=== PATIENT | male | born 1945 | race Caucasian/White ===

== ENCOUNTER 2017-10-18 15:01 | Inpatient (IN) | payer OTHER ==
[2017-10-18 15:48] VITALS: BMI 31.6
--- NOTE | 2017-10-18 18:07 | PDOC ---
History of Present Illness - General Chief Complaint: Injury Stated Complaint: FALL Time Seen by Provider: 10/18/17 16:06 History Source: Patient Exam Limitations: No Limitations - History of Present Illness Initial Comments: 10/18/17 17:54 Patient is a 72M with history of COPD, anxiety, HLD, and HTN here today after a witnessed mechanical fall. Patient and patient's family reports that he tripped on an uneven walking surface and landing on his head. He denies loss of consciousness. Denies being on aspirin or blood thinners. He denies neck pain, chest pain, shortness of breath. He does endorse bilateral shoulder pain. Denies fevers, chills, nausea, vomiting. Past History - Past Medical History Allergies/Adverse Reactions: Allergies Allergy/AdvReac Type Severity Reaction Status Date / Time peanut Allergy Verified 10/18/17 15:42 Penicillins Allergy Verified 10/18/17 15:42 Sulfa (Sulfonamide Allergy Verified 10/18/17 15:42 Antibiotics) Home Medications: Ambulatory Orders Albuterol Sulfate Inhaler - [Ventolin Hfa Inhaler -] 1 - 2 inh PO Q4H PRN Amlodipine Besylate [Norvasc -] 10 mg PO DAILY 10/18/17 Budesonide/Formeterol Fumarate [SYMBICORT 80/4.5mcg -] 0 inh PO ASDIR 10/18/17 Cetirizine HCl [Zyrtec -] 10 mg PO DAILY 10/18/17 Icosapent Ethyl [Vascepa] 0 gm PO ASDIR 10/18/17 Mirtazapine [Remeron -] 0 mg PO ASDIR 10/18/17 Neomycn/Polymxn/Dexmth Op Susp [Maxitrol] 0 ml OU UTDICT 10/18/17 Rosuvastatin Calcium [Crestor] 0 mg PO ASDIR 10/18/17 Trazodone HCl 0 mg PO ASDIR 10/18/17 clonazePAM [Klonopin -] 0.5 mg PO DAILY PRN 10/18/17 COPD: Yes HTN: Yes Psychiatric Problems: Yes (anxiety) - Surgical History Appendectomy: Yes - Suicide/Smoking/Psychosocial Hx Smoking History: Former smoker Have you smoked in the past 12 months: No If you are a former smoker, when did you quit?: 2 years ago Information on smoking cessation initiated: No Hx Alcohol Use: No Drug/Substance Use Hx: No Review of Systems - Review of Systems Comments:: 10/18/17 18:07 GENERAL/CONSTITUTIONAL: No fever or chills. No weakness. HEAD, EYES, EARS, NOSE AND THROAT: No change in vision. No sore throat. CARDIOVASCULAR: No chest pain or shortness of breath RESPIRATORY: No cough, wheezing, or hemoptysis. GASTROINTESTINAL: No nausea, vomiting, diarrhea or constipation. GENITOURINARY: No dysuria, frequency, or change in urination. MUSCULOSKELETAL: Positive for shoulder pain. No neck or back pain. SKIN: No rash NEUROLOGIC: Positive for headache. Negative for vertigo, loss of consciousness, or change in strength/sensation. HEMATOLOGIC/LYMPHATIC: No anemia, easy bleeding, or history of blood clots. ALLERGIC/IMMUNOLOGIC: No hives or skin allergy. *Physical Exam - Vital Signs Last Vital Signs Temp Pulse Resp BP Pulse Ox 98.2 F 98 H 18 148/73 97 10/18/17 15:05 10/18/17 15:05 10/18/17 15:05 10/18/17 15:05 10/18/17 15:05 - Physical Exam Comments: 10/18/17 18:08 GENERAL: Awake, alert, and fully oriented, in no acute distress BACK: No midline tenderness, no signs of trauma, no step offs or deformities ARMS/SHOULDERS: Tenderness on lateral shoulders bilaterally, neurovascularly intact, small scrapes to hands bilaterally, limited ROM by pain, no obvious deformity PELVIS: Stable, nontender HEAD: Normocephalic, small abrasions along nose and forehead EYES: PERRLA, EOMI, sclera anicteric, conjunctiva clear ENT: Auricles normal inspection, hearing grossly normal, nares patent, oropharynx clear without exudates. Moist mucosa NECK: Normal ROM, supple, no lymphadenopathy, JVD, or masses, no midline tnedneress LUNGS: No distress, speaks full sentences, clear to auscultation bilaterally HEART: Regular rate and rhythm, normal S1 and S2, no murmurs, rubs or gallops, peripheral pulses normal and equal bilaterally. ABDOMEN: Soft, nontender, normoactive bowel sounds. No guarding, no rebound. No masses EXTREMITIES: Normal inspection, Normal range of motion, no edema. No clubbing or cyanosis. NEUROLOGICAL: Cranial nerves II through XII grossly intact. Normal speech, no focal sensorimotor deficits SKIN: Warm, Dry, normal turgor, no rashes or lesions noted. ED Treatment Course - RADIOLOGY Radiology Studies Ordered: Category Date Time Status FACIAL BONES CT W/O CONTRAST [CT] Stat CT Scan 10/18/17 16:[address] WITHOUT CONTRAST [CT] Stat CT Scan 10/18/17 16:34 Taken SHOULDER-LEFT [RAD] Stat Radiology 10/18/17 16:34 Taken SHOULDER-RIGHT [RAD] Stat Radiology 10/18/17 16:34 Taken - Medications Given in the ED: ED Medications Discontinued Medications Generic Name Dose Route Start Last Admin Trade Name Freq PRN Reason Stop Dose Admin Oxycodone/Acetaminophen 1 combo 10/18/17 15:46 10/18/17 15:55 Percocet 5/325 - PO 10/18/17 15:47 1 combo ONCE ONE Administration Medical Decision Making - Medical Decision Making 10/18/17 18:09 Patient is 72M with history of COPD, anxiety, HLD, and HTN here today with head and arm trauma after a fall. Vital signs normal and stable. NEXUS clears c- spine. Cannot rule out head due to bleed due to age. Limited ROM in shoulder and tender. X-rays show probable bilateral humeral head fracture. CT cervical spine added due to injury pattern. 10/18/17 19:05 Dr Hendricks contacted, limited dispo due to one view of each x-ray. Suggests CTs of both extremities to obtain better picture of acute process. Patient likely to be placed in slings bilaterally. Will admit due to inability of patient to take care of himself. Signed out to Dr Christie, pending CT of shoulders and cervical spine. Pre- admission labs ordered. *DC/Admit/Observation/Transfer Diagnosis at time of Disposition: Humerus fracture Qualifiers: Encounter type: initial encounter Humerus Location: proximal Fracture type: closed - Discharge Dispostion Condition at time of disposition: Stable - Referrals - Patient Instructions - Post Discharge Activity
--- NOTE | 2017-10-18 18:59 | PDOC ---
*Physical Exam - Vital Signs Last Vital Signs Temp Pulse Resp BP Pulse Ox 98.2 F 98 H 18 148/73 97 10/18/17 15:05 10/18/17 15:05 10/18/17 15:05 10/18/17 15:05 10/18/17 15:05 ED Treatment Course - LABORATORY CBC & Chemistry Diagram: 10/18/17 20:20 10/18/17 20:20 - Medications Given in the ED: ED Medications Discontinued Medications Generic Name Dose Route Start Last Admin Trade Name Freq PRN Reason Stop Dose Admin Oxycodone/Acetaminophen 1 combo 10/18/17 15:46 10/18/17 15:55 Percocet 5/325 - PO 10/18/17 15:47 1 combo ONCE ONE Administration Medical Decision Making - Medical Decision Making 72 yo man with BL proximal humeral fractures after mechanical fall. Ortho aware , recommended BL arm CTs and BL slings. Dr. Hendricks aware. Sign out given by Dr. Mathis. Will admit after imaging. 10/18/17 18:[address] arms noted for BL proximal comminuted fractures of the humeral heads with moderate displacement. Discussed case with Dr. Hendricks, plan for conservative management. Will admit to hospital for likely ALEKSANDRA placement. 10/18/17 21:52 Discussed case with admitting resident Dr. Santos for [facility]. Will admit to M/S under Dr. Berg. 10/18/17 22:55 *DC/Admit/Observation/Transfer Diagnosis at time of Disposition: Humerus fracture Qualifiers: Encounter type: initial encounter Humerus Location: proximal Fracture type: closed - Discharge Dispostion Condition at time of disposition: Stable - Referrals - Patient Instructions - Post Discharge Activity
[2017-10-18] MEDS ORDERED: morphine CARPU-JECT 2 MG/1 ML DISP.SYRIN IVPUSH ONE (20:56)
[2017-10-18] MEDS ORDERED: morphine CARPU-JECT 4 MG/1 ML DISP.SYRIN IVPUSH ONE (20:57)
[2017-10-18] MEDS ORDERED: morphine SULFATE 4 MG/ML VIAL ONE (21:02)
--- NOTE | 2017-10-18 21:55 | PDOC ---
Attending Attestation - HPI HPI: 10/18/17 21:55 The patient is a 72 year old male with past medical history of hypertension, hyperlipidemia, COPD, and anxiety who presents to the ED s/p mechanical fall today. The patient states he was walking down a wheelchair ramp when he tripped and fell, landing on his face and extended arms. In the ED he complains of nose pain as well as bilateral shoulder pain. He denies any LOC, or focal neurological deficits. He denies any palpitations, chest pain, headache or diaphoresis leading up to the fall. Denies any recent fevers or chills - Physicial Exam PE: 10/18/17 21:59 bilat shoulder pain GENERAL: Well developed, well nourished. Awake and alert. HEENT: Superficial abrasions over nasal bridge, PERRLA, EOMI. No conjunctival pallor. Sclera are non-icteric. Moist mucous membranes. Oropharynx is clear. NECK: Supple. Full ROM. No JVD. Carotid pulses 2+ and symmetric, without bruits. No thyromegaly. No lymphadenopathy. CARDIOVASCULAR: Regular rate and rhythm. No murmurs, rubs, or gallops. Distal pulses are 2+ and symmetric. PULMONARY: No evidence of respiratory distress. Lungs clear to auscultation bilaterally. No wheezing, rales or rhonchi. ABDOMINAL: Soft. Non-tender. Non-distended. No rebound or guarding. No organomegaly. Normoactive bowel sounds. MUSCULOSKELETAL Bilateral shoulder pain elicited on palpation. No CVA tenderness. EXTREMITIES: Pitting edema of bilateral lower extremities. No cyanosis. No clubbing. No calf tenderness. 2+ distal pulses, 2+ radial pulses SKIN: Warm and dry. Normal capillary refill. No rashes. No jaundice. NEUROLOGICAL: Alert, awake, appropriate. Cranial nerves 2-12 intact.Normal speech. PSYCHIATRIC: Cooperative. Good eye contact. Appropriate mood and affect. - Medical Decision Making 10/18/17 21:56 Documentation prepared by Raegan Gonzales, acting as medical record coder for Dolly Mullins MD. 10/18/17 22:27 Microblog sent to [facility]. <Raegan Gonzales - Last Filed: 10/18/17 22:59> - Resident Resident Name: Harpreet Mathis - ED Attending Attestation I have performed the following: I have examined & evaluated the patient, The case was reviewed & discussed with the resident, I agree w/resident's findings & plan, Exceptions are as noted - Medical Decision Making 10/19/17 01:53 Patient was seen by orthopedist, Dr. Hendricks who wrote a consultation <Dolly Mullins - Last Filed: 10/19/17 01:54>
--- NOTE | 2017-10-18 21:57 | CONSULT ---
Consult - text type - Consultation Consultation Note: Asked to eval this 72M, RHD, with bilateral shoulder fractures. He tripped and fell today. No LOC. Denies neck pain, blurry vision. PMH:COPD, anxiety, HLD, and HTN Meds: Reviewed in chart All: peanuts.PCN, sulfa FH: n/c SH: neg cig/etoh ROS: no recent fevers/chills/weight loss PE: awake, alert, orinted, breathing comfortably Superficial abrasions and swelling over nasal area b/l shoulder swollen and painful, no elbow/wrist tenderness radial pulses 2+ B/L ROM without pain, able to raise both legs out of bed without difficulty distal pulses 2+ No peripheral edema Nontender to palpation throughout pelvis and lower extremities, DTR symmetric Xrays: b/l impacted proximal humerus fractures, however only 1 view per shoulder done CT scans: b/l comminuted, impacted proximal humerus fractures, no dislocation Imp: B/L impacted comminuted proximal humerus fractures -sling b/l UE, NWB, may use elbows and wrists for daily activities -will order plain films in the morning AP, scapular Y xrays to check overall alignment. Both fractures likely nonoperative. -dispo planning
[2017-10-18 22:03] LABS: BLOOD UREA NITROGEN 13 mg/dL (7-18); CREATININE 1.3 mg/dL (0.7-1.3); GLUCOSE,RANDOM 131 mg/dL (74-106); SODIUM 139 mmol/L (136-145)
[2017-10-18 22:04] LABS: ALBUMIN 3.6 g/dl (3.4-5.0); ANION GAP 8 (8-16); BILIRUBIN,TOTAL 2.3 mg/dL (0.2-1.0); CALCIUM 8.5 mg/dL (8.5-10.1); CHLORIDE 108 mmol/L (98-107); CO2 23 mmol/L (21-32); POTASSIUM 4.5 mmol/L (3.5-5.1); TOT PROT 6.8 g/dl (6.4-8.2)
[2017-10-18 22:05] LABS: ALK PHOS 106 U/L (45-117); SGOT/AST 20 U/L (15-37); SGPT/ALT 18 U/L (12-78)
[2017-10-18] MEDS ORDERED: clonazePAM 0.5 MG TABLET PO ONE (22:05)
[2017-10-18] MEDS ORDERED: FUROSEMIDE 20 MG TABLET (FP) PO ONE (22:05)
[2017-10-18] MEDS ORDERED: traZODone HCL 50 MG TABLET (FP) PO ONE (22:05)
[2017-10-18 22:06] LABS: HEMATOCRIT 41.9 % (35.4-49); HEMOGLOBIN 14.2 GM/dL (11.7-16.9); MCH 32.7 pg (25.7-33.7); MEAN CELL VOLUME 96.3 fl (80-96); PLATELET COUNT 197 K/MM3 (134-434); RBC 4.35 M/mm3 (4.00-5.60); WHITE BLOOD COUNT 12.8 K/mm3 (4.0-10.0)
[2017-10-18 22:07] LABS: MEAN PLT VOLUME 7.4 fl (7.5-11.1)
[2017-10-18] MEDS ORDERED: DEXTROSE 5%-0.45% SALINE 1,000 ML IV SCH (22:15)
[2017-10-18 22:16] LABS: INR 1.1 (0.82-1.09); PROTHROMBIN TIME (PATIENT) 12.4 SEC (9.7-13.0)
[2017-10-18] MEDS ORDERED: FUROSEMIDE 40 MG TABLET (FP) ONE (22:28)
[2017-10-18] MEDS ORDERED: clonazePAM 0.5 MG TABLET ONE (22:28)
[2017-10-18] MEDS ORDERED: MIRTAZAPINE 15 MG TABLET (FP) ONE (22:29)
--- NOTE | 2017-10-18 22:41 | PN ---
Teaching Attending Note Name of Resident: Mana Santos ATTENDING PHYSICIAN STATEMENT I saw and evaluated the patient. I reviewed the resident's note and discussed the case with the resident. I agree with the resident's findings and plan as documented. SUBJECTIVE: Patient is a 72 year old man with chief complaint of mechanical fall. He has past medical history of hypertension, hyperlipidemia, COPD, anxiety, ?possibly CAD with stents. Says he was walking down a wheelchair ramp when he tripped and fell, landing on his face and extended arms. In the ED he complains of nose pain as well as bilateral shoulder pain. He denies any LOC, and xrays and scans showed nasal bone fracture, and bilateral comminuted, impacted proximal humerus fractures, with no dislocation. He was seen by Ortho in the ER. OBJECTIVE: Alert. In no acute distress Vital Signs Period Temp Pulse Resp BP Sys/[place] Pulse Ox Last 24 Hr 98.2 F 98 18 148/73 97 HEENT: No Jaundice, eye redness or discharge, PERRLA, EOMI. Normocephalic, abrasions on left forehead. External ears are normal and hearing is grossly intact. Abrasions and swelling over the nose and dried blood in both nostrils. No nasal discharge. Neck: Supple, nontender. No palpable adenopathy or thyromegaly. No JVD Chest: Good effort. Clear to auscultation and percussion. Heart: Regular. No S3, rub or murmur Abdomen: Not distended, soft, nontender and no HSM. No rebound or guarding. Normoactive bowel sounds. Ext: Peripheral pulses intact. No leg edema. Bilateral swollen and mildly tender shoulders with limited ROMl, no elbow/wrist tenderness radial pulses 2+ Skin: Warm and dry. No petechiae, rash or ecchymosis. Neuro: Alert. Oriented x3. CN 2-12 grossly intact. Sensation grossly intact in all four extremities and DTR are symmetric. Current Medications Generic Name Dose Route Start Last Admin Trade Name Freq PRN Reason Stop Dose Admin Dextrose/Sodium Chloride 1,000 mls @ 125 mls/hr 10/18/17 22:15 D5-1/2ns - IV ASDIR LEANNA Home Medications Medication Instructions Recorded Albuterol Sulfate Inhaler - 1 - 2 inh PO Q4H PRN 10/18/17 [Ventolin Hfa Inhaler -] Amlodipine Besylate [Norvasc -] 10 mg PO DAILY 10/18/17 Budesonide/Formeterol Fumarate 0 inh PO ASDIR 10/18/17 [SYMBICORT 80/4.5mcg -] Cetirizine HCl [Zyrtec -] 10 mg PO DAILY 10/18/17 Furosemide [Lasix] 20 mg PO DAILY 10/18/17 Icosapent Ethyl [Vascepa] 0 gm PO ASDIR 10/18/17 Mirtazapine [Remeron -] 0 mg PO ASDIR 10/18/17 Neomycn/Polymxn/Dexmth Op Susp 0 ml OU UTDICT 10/18/17 [Maxitrol] Rosuvastatin Calcium [Crestor] 0 mg PO ASDIR 10/18/17 Trazodone HCl 50 mg PO HS 10/18/17 clonazePAM [Klonopin -] 0.5 mg PO DAILY PRN 10/18/17 Abnormal Lab Results 10/18/17 10/18/17 20:20 20:20 WBC 12.8 H MCV 96.3 H MPV 7.4 L Chloride 108 H Random Glucose 131 H Total Bilirubin 2.3 H ASSESSMENT AND PLAN: 1. Mechanical fall with humerus fractures - Patient being admitted as an inpatient. In addition to Ortho evaluation will consult physical therapy. Will give morphine for severe pain 1 mg IV q 6 hours. Will consult ENT for nasal bone fracture and taumatic epistaxis. 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 2. COPD - Continue his home regimen of inhalational bronchodilators. 3. Anxiety disorder - Continue current regimen of trazodone/klonopin and remeron - will confirm doses with his PCP/Pharmacy. 4. CAD with stents? - Need to confirm with his PCP whether he actually has stents and why he is not on Plavix or anyother agent. 5. Elevated Bilirubin - Etiology/relevance unclear. Will monitor and investigate if it continue to rise. 6. Leukocytosis - Likely due to stress. No other evidence of infection. Monitor closely. 7. DVT prophylaxis - Heparin 5000u sq tid 8. Advance directives - Full code
--- NOTE | 2017-10-18 22:48 | HP ---
CHIEF COMPLAINT: fell PCP: Dr. Mohan Perkins, HISTORY OF PRESENT ILLNESS: 72 yo man with PMH of HTN, HLD, COPD, anxiety who presents to ED after witnessed mechanical fall earlier today. Patient trip on uneven surface and fell to the ground landing on his head and shoulders. Patient denies any syncopal symptoms prior to event. No history of seizures; no tongue biting, incontinence, or LOC during or after fall. Denies any ANTON, blurry vision or neck pain. Patient walks without assistance at baseline. No history of prior falls. Patient does not take any blood thinners, including ASA 81mg daily. Denies any fever, chills, URI symptoms, and urinary symptoms. ER course was notable for: (1) CT UE w/o contrast: moderately displaced, comminuted fractures of R and L humeral head/neck w/o glenohumeral joint dislocation (2) Head and C-spine CT negative for acute fracture/bleeds (3) CT facial bones - probably non-displaced nasal fracture vs suture line Recent Travel: none PAST MEDICAL HISTORY: see HPI PAST SURGICAL HISTORY: ?abdominal aortic aneurysm repair - patient recall details Social History: Smoking: quit 2 years ago; 12cigarettes/day x 50years: ~25pack year history Alcohol: 1-2 drinks per week Drugs: none Family History: non-contributory Allergies peanut Allergy (Verified 10/18/17 15:42) Penicillins Allergy (Verified 10/18/17 15:42) Sulfa (Sulfonamide Antibiotics) Allergy (Verified 10/18/17 15:42) HOME MEDICATIONS: Home Medications Medication Instructions Recorded Albuterol Sulfate Inhaler - 1 - 2 inh PO Q4H PRN 10/18/17 [Ventolin Hfa Inhaler -] Amlodipine Besylate [Norvasc -] 10 mg PO DAILY 10/18/17 Budesonide/Formeterol Fumarate 0 inh PO ASDIR 10/18/17 [SYMBICORT 80/4.5mcg -] Cetirizine HCl [Zyrtec -] 10 mg PO DAILY 10/18/17 Furosemide [Lasix] 20 mg PO DAILY 10/18/17 Icosapent Ethyl [Vascepa] 0 gm PO ASDIR 10/18/17 Mirtazapine [Remeron -] 0 mg PO ASDIR 10/18/17 Neomycn/Polymxn/Dexmth Op Susp 0 ml OU UTDICT 10/18/17 [Maxitrol] Rosuvastatin Calcium [Crestor] 0 mg PO ASDIR 10/18/17 Trazodone HCl 50 mg PO HS 10/18/17 clonazePAM [Klonopin -] 0.5 mg PO DAILY PRN 10/18/17 REVIEW OF SYSTEMS CONSTITUTIONAL: Absent: fever, chills, diaphoresis, generalized weakness, malaise, loss of appetite, weight change HEENT: Absent: rhinorrhea, nasal congestion, throat pain, throat swelling, difficulty swallowing, mouth swelling, ear pain, eye pain, visual changes CARDIOVASCULAR: Absent: chest pain, syncope, palpitations, irregular heart rate, lightheadedness , peripheral edema RESPIRATORY: Absent: cough, shortness of breath, dyspnea with exertion, orthopnea, wheezing, stridor, hemoptysis GASTROINTESTINAL: Absent: abdominal pain, abdominal distension, nausea, vomiting, diarrhea, constipation, melena, hematochezia GENITOURINARY: Absent: dysuria, frequency, urgency, hesitancy, hematuria, flank pain, genital pain MUSCULOSKELETAL: Absent: myalgia, arthralgia, joint swelling, back pain, neck pain SKIN: Absent: rash, itching, pallor HEMATOLOGIC/IMMUNOLOGIC: Absent: easy bleeding, easy bruising, lymphadenopathy, frequent infections ENDOCRINE: Absent: unexplained weight gain, unexplained weight loss, heat intolerance, cold intolerance NEUROLOGIC: Absent: headache, focal weakness or paresthesias, dizziness, unsteady gait, seizure, mental status changes, bladder or bowel incontinence PSYCHIATRIC: Absent: anxiety, depression, suicidal or homicidal ideation, hallucinations. PHYSICAL EXAMINATION Vital Signs - 24 hr 10/18/17 15:05 Temperature 98.2 F Pulse Rate 98 H Respiratory 18 Rate Blood Pressure 148/73 O2 Sat by Pulse 97 Oximetry (%) GENERAL: aaox3, nad HEENT: abrasion on above L eyebrow and across nose bridge; crusted blood in nares, no active epistaxis, PERRL, EOMI, sclera anicteric, conjunctiva clear, oropharynx clear without exudates, mmm NECK: supple, no nuchal rigidity LUNGS: CTAB HEART: RRR, normal s1/s2, no m/r/g ABDOMEN: soft, protuberant, NTND, +positive bowel sounds MUSCULOSKELETAL: limited shoulder ROM bilaterally due to pain; b/l shoulders swollen, +ttp UPPER EXTREMITIES: 2+ radial pulses, wwp, no edema, +ecchymosis on dorsum of hands bilaterally LOWER EXTREMITIES: 2+ DP pulses, wwp, 1+pitting edema NEUROLOGICAL: Cranial nerves II-XII intact. Normal speech. motor strength 5/5 in LE bilaterally; wrist extension/flexion 5/5 bilaterally, distal sensation to light tough intact in all 4 extremities PSYCHIATRIC: Cooperative. Good eye contact. Appropriate mood and affect. CBC, BMP 10/18/17 20:20 10/18/17 20:20 Hepatic Panel Total Bilirubin 2.3 mg/dL (0.2-1.0) H 10/18/17 20:20 AST 20 U/L (15-37) 10/18/17 20:20 ALT 18 U/L (12-78) 10/18/17 20:20 Alkaline Phosphatase 106 U/L (45-117) 10/18/17 20:20 Albumin 3.6 g/dl (3.4-5.0) 10/18/17 20:20 INR, PTT INR 1.10 (0.82-1.09) 10/18/17 20:20 EKG: Sinus with frequent PVCs, rate 100, minimal voltage requirement for LVH, QTc 428 ASSESSMENT/PLAN: 72yo man with PMD of COPD, HTN, HLD, and anxiety who presents s/p witnessed mechanical fall and found to have moderately displaced, comminuted fractures of R and L humeral head/neck #bilateral shoulder fractures -Ortho consulted: both fractures likely non-operative; bilateral UE sling: can use elbows/wrists for daily activities -AM imaging per Ortho -Morphine 1mg Q6H PRN for pain control -Colace PRN for constipation -PT evaluation #mild leukocytosis, likely reactive -Trend #hyperbilirubinemia, unclear etiology -Trend and check Direct bili in AM #HTN -Reconcile home medications -c/w home Metoprolol Succinate 25mg PO daily #COPD, not in exacerbation -Comfirm home meds -Ventolin PRN #HLD - c/w home Crestor 5mg qd #anxiety -confirm home meds -c/w home meds #FEN PO intake lytes wnl Cardiac diet #PPX DVT - HSQ Q8H #DISPO: m/s, will likely need ALEKSANDRA, patient from [facility] in [place], 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 Berg Visit type - Emergency Visit Emergency Visit: Yes ED Registration Date: 10/18/17 Care time: The patient presented to the Emergency Department on the above date and was hospitalized for further evaluation of their emergent condition. - New Patient This patient is new to me today: Yes Date on this admission: 10/19/17 - Critical Care Critical Care patient: No Hospitalist Screening - Colonoscopy Questionnaire Colonoscopy Questionnaire: Colonoscopy Questionnaire - Patient: 50 - 75 years old and never had a screening colonoscopy: No History of colon or rectal polyps, or CA: Unknown History of IBD, Crohn's disease or UC: Unknown History of abdominal radiation therapy as a child: Unknown - Relative: 1 with colon or rectal CA, or polyps at age 60 or younger: Unknown Colon or rectal CA diagnosed at age 45 or younger: Unknown Multiple relatives with colon or rectal CA: Unknown - Outcome: Screening Result: Negative Screen
[2017-10-19] MEDS ORDERED: morphine SULFATE 4 MG/ML VIAL IVPUSH PRN ×2 (00:04→01:11)
[2017-10-19] MEDS ORDERED: DOCUSATE SODIUM 100 MG CAPSULE (FP) PO PRN (00:04)
[2017-10-19] MEDS ORDERED: ALBUTEROL SO4 18 GM HFA INHALER IH PRN (00:28)
[2017-10-19] MEDS ORDERED: morphine CARPU-JECT 2 MG/1 ML DISP.SYRIN ONE (02:54)
[2017-10-19] MEDS ORDERED: HEPARIN NA (PORCINE) 5,000 UNITS/ML 1ML VIAL SQ SCH (06:00)
[2017-10-19] MEDS ORDERED: HEPARIN NA (PORCINE) 5,000 UNITS/ML 1ML VIAL ONE (06:34)
[2017-10-19 08:37] LABS: BASO % 0.2 % (0-2.0); EOS % 0.2 % (0-4.5); HEMOGLOBIN 12.4 GM/dL (11.7-16.9); LYMPH % 32.7 % (8-40); MCH 34.5 pg (25.7-33.7); MCHC 35.4 g/dl (32.0-35.9); MEAN CELL VOLUME 97.3 fl (80-96); MEAN PLT VOLUME 7.7 fl (7.5-11.1); MONO % 6.9 % (3.8-10.2); PLATELET COUNT 165 K/MM3 (134-434); RDW 13.1 % (11.9-15.9); WHITE BLOOD COUNT 9.1 K/mm3 (4.0-10.0)
[2017-10-19 08:56] LABS: ANION GAP 7 (8-16); BLOOD UREA NITROGEN 13 mg/dL (7-18); CALCIUM 7.8 mg/dL (8.5-10.1); CHLORIDE 108 mmol/L (98-107); CO2 24 mmol/L (21-32); CREATININE 1.2 mg/dL (0.7-1.3); GLUCOSE,RANDOM 123 mg/dL (74-106); POTASSIUM 3.8 mmol/L (3.5-5.1); SGPT/ALT 14 U/L (12-78); SODIUM 139 mmol/L (136-145); TOT PROT 5.7 g/dl (6.4-8.2)
[2017-10-19 08:58] LABS: ALK PHOS 85 U/L (45-117); SGOT/AST 15 U/L (15-37)
[2017-10-19] MEDS: clonazePAM 0.5 MG TABLET PO PRN ×2 (11:59→22:51)
[2017-10-19] MEDS: FUROSEMIDE 20 MG TABLET (FP) PO SCH (11:59)
--- NOTE | 2017-10-19 12:39 | PN ---
Teaching Attending Note Name of Resident: Kiana Briseyda Biggs ATTENDING PHYSICIAN STATEMENT I saw and evaluated the patient. I reviewed the resident's note and discussed the case with the resident. I agree with the resident's findings and plan as documented. SUBJECTIVE:improvement with pain medication but states that pain medication does not last longer than an hour. denies CP, SOB, fever, chills, palpitations, numbness/tingling in the arms or hands. states he had no symptoms prior to falling. no LOC OBJECTIVE: Last Vital Signs Temp Pulse Resp BP Pulse Ox 98.2 F 86 18 120/67 98 10/19/17 11:00 10/19/17 11:00 10/19/17 11:00 10/19/17 11:00 10/19/17 07:47 General NAD HEENT bruising superior tl L orbit. bruising on bridge of nose. dried blood noted in the nares CV S1 S2 RRR no murmur/rub/gallop Lungs CTA B/l no wheezing/rales/rhonchi Extremities able to pronate/supinate B/L UE. full motion at the wrist. pulses 2 + sensation grossly intact ASSESSMENT AND PLAN: 72yo M wt PMH HTN. dyslipidemia, COPD and CAD s/p stnet presented to the hospital after falling on outstretched hands then striking his face. Found to have B/L proximal humerus fractures and nasal bone fracture 1. B/L proximal humerus fractures- due to mechanical fall. repeat imaging showing concern for hemarthrosis. will repeat CBC as trended down although this is likely dilutional effect. repeat images tomorrow. will notify ortho of this change. currently NWB with arms in slings. pain control. recommended to start tramadol RTC for pain control however he refused. wants to continue current management 2. Nasal bone fracture-will consult ENT. no blood noted in the sinuses 3. normocytic anemia- likely dilutional effect. no previous labs to compare. will repeat. no indication for txn 4. HTN- controlled. cont current management. d/c IVF 5. Dyslipidemia 6. COPD 7. CAD s/p stents 8. DVT ppx- will d/c heparin at this time in setting of hemarthrosis 9. may benefit from ALEKSANDRA as pt is limited in performing ADL and transferring. requests facility in [place]. spoke with MARY JANE
[2017-10-19 13:41] LABS: HEMATOCRIT 35.3 % (35.4-49); HEMOGLOBIN 12.3 GM/dL (11.7-16.9); MCH 33.6 pg (25.7-33.7); MCHC 34.8 g/dl (32.0-35.9); MEAN CELL VOLUME 96.4 fl (80-96); MEAN PLT VOLUME 7.7 fl (7.5-11.1); PLATELET COUNT 167 K/MM3 (134-434); RBC 3.66 M/mm3 (4.00-5.60); RDW 12.8 % (11.9-15.9); WHITE BLOOD COUNT 9.5 K/mm3 (4.0-10.0)
--- NOTE | 2017-10-19 13:41 | EKG ---
Test Reason : Blood Pressure : / mmHG Vent. Rate : 100 BPM Atrial Rate : 100 BPM P-R Int : 168 ms QRS Dur : 070 ms QT Int : 332 ms P-R-T Axes : 027 -17 040 degrees QTc Int : 428 ms SINUS RHYTHM WITH FREQUENT PREMATURE VENTRICULAR COMPLEXES MINIMAL VOLTAGE CRITERIA FOR LVH, MAY BE NORMAL VARIANT BORDERLINE ECG NO PREVIOUS ECGS AVAILABLE Confirmed by MD Jayro, Martell ([id number]) on 10/19/2017 1:40:51 PM Referred By: Confirmed By:Martell Dial MD
[2017-10-19] MEDS ORDERED: oxyCODONE HCL 5 MG TABLET PO PRN (14:24)
--- NOTE | 2017-10-19 14:46 | PN ---
Physical Exam: SUBJECTIVE: Patient seen and examined. Pt is alert and oriented, able to give a detailed history. Pain managed with medication OBJECTIVE: Vital Signs Period Temp Pulse Resp BP Sys/Montgomery Pulse Ox Last 24 Hr 98 F-98.2 F 64-98 18-18 114-148/60-78 97-98 Vital Signs Temp 98 F 10/19/17 14:25 Pulse 94 H 10/19/17 14:25 Resp 18 10/19/17 14:25 BP 128/78 10/19/17 14:25 Pulse Ox 98 10/19/17 07:47 Intake & Output 10/18/17 10/19/17 10/19/17 23:59 11:59 23:59 Intake Total 625 Output Total 300 Balance 325 Weight 94.347 kg Intake: IV 625 D5-1/2Ns - 1,000 ml @ 125 625 mls/hr IV ASDIR [facility] Rx#: [id number] Output: Urine 300 Void 300 Other: Voiding Method Urinal Toilet Height 1.73 m Body Mass Index (BMI) 31.6 GENERAL: The patient is awake, alert, and fully oriented, in sling over bilateral shoulders. HEAD: Bandaid over nasal bridge and over L eyebrow. EYES: PERRL, extraocular movements intact, sclera anicteric, conjunctiva clear. ENT: Dried blood seen in both nostrils. LUNGS: Breath sounds equal, clear to auscultation bilaterally HEART: Regular rate and rhythm, S1, S2 ABDOMEN: Soft, nontender, nondistended, bilateral groin hyperemia EXTREMITIES: 2+ pulses, warm, well-perfused, no edema. NEUROLOGICAL: Cranial nerves II through XII grossly intact. Normal speech, gait not observed. Laboratory Results - last 24 hr 10/18/17 10/18/17 10/18/17 20:20 20:20 20:20 WBC 12.8 H RBC 4.35 Hgb 14.2 Hct 41.9 MCV 96.3 H MCH 32.7 MCHC 34.0 RDW 13.0 Plt Count 197 MPV 7.4 L Neutrophils % Lymphocytes % Monocytes % Eosinophils % Basophils % Nucleated RBC % PT with INR 12.40 INR 1.10 Sodium 139 Potassium 4.5 Chloride 108 H Carbon Dioxide 23 Anion Gap 8 BUN 13 Creatinine 1.3 Creat Clearance w eGFR 54.11 Random Glucose 131 H Calcium 8.5 Total Bilirubin 2.3 H Direct Bilirubin AST 20 ALT 18 Alkaline Phosphatase 106 Total Protein 6.8 Albumin 3.6 Blood Type Antibody Screen 10/18/17 10/19/17 10/19/17 20:20 08:05 08:05 WBC 9.1 RBC 3.60 L Hgb 12.4 D Hct 35.0 L D MCV 97.3 H MCH 34.5 H MCHC 35.4 RDW 13.1 Plt Count 165 MPV 7.7 Neutrophils % 60.0 Lymphocytes % 32.7 Monocytes % 6.9 Eosinophils % 0.2 Basophils % 0.2 Nucleated RBC % 0 PT with INR INR Sodium 139 Potassium 3.8 Chloride 108 H Carbon Dioxide 24 Anion Gap 7 L BUN 13 Creatinine 1.2 Creat Clearance w eGFR 59.35 Random Glucose 123 H Calcium 7.8 L Total Bilirubin 2.0 H Direct Bilirubin AST 15 D ALT 14 D Alkaline Phosphatase 85 Total Protein 5.7 L Albumin 3.0 L Blood Type O POSITIVE Antibody Screen Negative 10/19/17 10/19/17 08:05 13:00 WBC 9.5 RBC 3.66 L Hgb 12.3 Hct 35.3 L MCV 96.4 H MCH 33.6 MCHC 34.8 RDW 12.8 Plt Count 167 MPV 7.7 Neutrophils % Lymphocytes % Monocytes % Eosinophils % Basophils % Nucleated RBC % PT with INR INR Sodium Potassium Chloride Carbon Dioxide Anion Gap BUN Creatinine Creat Clearance w eGFR Random Glucose Calcium Total Bilirubin Direct Bilirubin 0.4 H AST ALT Alkaline Phosphatase Total Protein Albumin Blood Type Antibody Screen Active Medications Generic Name Dose Route Start Last Admin Trade Name Freq PRN Reason Stop Dose Admin Acetaminophen 325 mg 10/19/17 14:24 Tylenol - PO Q4H PRN PAIN LEVEL 4-6 Albuterol Sulfate 1 puff 10/19/17 00:28 Ventolin Hfa Inhaler - IH Q4H PRN SHORT OF BREATH/WHEEZING Bacitracin 1 applic 10/19/17 14:45 Bacitracin - TP DAILY [facility] Clonazepam 0.5 mg 10/19/17 00:28 10/19/17 11:59 Klonopin - PO 0.5 mg BID PRN Administration ANXIETY Docusate Sodium 100 mg 10/19/17 00:04 Colace - PO BID PRN CONSTIPATION Furosemide 20 mg 10/19/17 10:00 10/19/17 11:59 Lasix - PO 20 mg DAILY [facility] Administration Mirtazapine 15 mg 10/19/17 22:00 Remeron - PO HS [facility] Morphine Sulfate 1 mg 10/19/17 01:11 10/19/17 02:58 Morphine Sulfate IVPUSH 1 mg Q6H PRN Administration PAIN LEVEL 7-10 Nystatin 1 applic 10/19/17 18:00 Mycostatin Cream - TP Q6HPO [facility] Oxycodone HCl 5 mg 10/19/17 14:24 Roxicodone - PO Q4H PRN PAIN LEVEL4-6 Rosuvastatin Calcium 5 mg 10/19/17 22:00 Crestor - PO HS [facility] Trazodone HCl 50 mg 10/19/17 22:00 Desyrel - PO [facility] Ambulatory Orders Albuterol Sulfate Inhaler - [Ventolin Hfa Inhaler -] 1 - 2 inh PO Q4H PRN Budesonide/Formeterol Fumarate [SYMBICORT 80/4.5mcg -] 0 inh PO ASDIR 10/18/17 Cetirizine HCl [Zyrtec -] 10 mg PO DAILY 10/18/17 Furosemide [Lasix] 20 mg PO DAILY 10/18/17 Icosapent Ethyl [Vascepa] 0 gm PO ASDIR 10/18/17 Mirtazapine [Remeron -] 15 mg PO HS 10/18/17 Neomycn/Polymxn/Dexmth Op Susp [Maxitrol] 0 ml OU UTDICT 10/18/17 Rosuvastatin Calcium [Crestor] 5 mg PO DAILY 10/18/17 Trazodone HCl 100 mg PO HS 10/18/17 clonazePAM [Klonopin -] 0.5 mg PO BID PRN MDD 1 10/18/17 Metoprolol Succinate 25 mg PO DAILY 10/19/17 Tobramycin/Dexamethasone [Tobradex Eye Drops] 5 ml OP DAILY 10/19/17 Current Medications Acetaminophen (Tylenol -) 325 mg PO Q4H PRN PRN Reason: PAIN LEVEL 4-6 Last Admin: 10/19/17 14:50 Dose: 325 mg Albuterol Sulfate (Ventolin Hfa Inhaler -) 1 puff IH Q4H PRN PRN Reason: SHORT OF BREATH/WHEEZING Bacitracin (Bacitracin -) 1 applic TP DAILY [facility] Last Admin: 10/19/17 14:55 Dose: 1 applic Clonazepam (Klonopin -) 0.5 mg PO BID PRN PRN Reason: ANXIETY Last Admin: 10/19/17 11:59 Dose: 0.5 mg Docusate Sodium (Colace -) 100 mg PO BID PRN PRN Reason: CONSTIPATION Furosemide (Lasix -) 20 mg PO DAILY [facility] Last Admin: 10/19/17 11:59 Dose: 20 mg Mirtazapine (Remeron -) 15 mg PO HS [facility] Morphine Sulfate (Morphine Sulfate) 1 mg IVPUSH Q6H PRN PRN Reason: PAIN LEVEL 7-10 Last Admin: 10/19/17 02:58 Dose: 1 mg Nystatin (Mycostatin Cream -) 1 applic TP Q6HPO [facility] Oxycodone HCl (Roxicodone -) 5 mg PO Q4H PRN PRN Reason: PAIN LEVEL4-6 Last Admin: 10/19/17 14:52 Dose: 5 mg Rosuvastatin Calcium (Crestor -) 5 mg PO HS [facility] Trazodone HCl (Desyrel -) 50 mg PO HS [facility] ASSESSMENT/PLAN: 72yo man with PMD of COPD, HTN, HLD, and anxiety who presents s/p witnessed mechanical fall and found to have moderately displaced, comminuted fractures of R and L humeral head/neck #bilateral shoulder fractures -Ortho consulted: both fractures likely non-operative; bilateral UE sling: can use elbows/wrists for daily activities -D/W- ENT- nasal bone fracture stable, can follow out as an outpatient -Morphine 1mg Q6H PRN for pain control -Percocet 5mg Q4H -Colace PRN for constipation -PT evaluation- Pt will need a SNF, D/W Social work- Pt will need preauthorization -Repeat CBC #mild leukocytosis, likely reactive -Trend #hyperbilirubinemia, unclear etiology -Trend and check Direct bili in AM #HTN -c/w home Metoprolol Succinate 25mg PO daily #COPD, not in exacerbation -Ventolin PRN #HLD - c/w home Crestor 5mg qd #anxiety -For home meds( Pharmacy- [facility], [id number]- [phone], Dr Sarah/ Dr Carter Murphy [phone], Dr Veronique [phone]) -c/w home meds #FEN PO intake lytes wnl Cardiac diet #PPX DVT -Hold heparin with recent trauma #DISPO: will likely need [facility], patient from [facility] in [place], and 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 - New Patient This patient is new to me today: Yes Date on this admission: 10/19/17 - Critical Care Critical Care patient: No - Discharge Referral Referred to [facility] Med P.C.: No
[2017-10-19] MEDS: ACETAMINOPHEN 325 MG TABLET (FP) PO PRN ×2 (14:50→20:14)
[2017-10-19] MEDS: BACITRACIN 15 GM TUBE TOPICAL OINTMENT TP SCH (14:55)
--- NOTE | 2017-10-19 17:36 | PN ---
Progress Note (short form) - Note Progress Note: doing better wearing b/l slings NVID b/l [facility] [place] Ctscans, xrays reviewed: right shoulder with 4 part comminuted prox humerus fracture with depression of the humeral head left shoulder with comminuted, impacted prox humerus fracture Discussed with patient - will treat nonoperatively for both injuries. Operative treatment for right shoulder would require arthroplasty which can be done in the future if he develops poor function, AVN, or artrhritis after bony healing -ok for dispo from my standpoint. f/u in office in two weeks.
[2017-10-19] MEDS ORDERED: NYSTATIN 100,000 UNIT/GM TOPICAL CREAM 15 GM TUBE TP SCH (18:00)
[2017-10-19] MEDS: NYSTATIN 100,000 UNIT/GM TOPICAL CREAM 15 GM TUBE TP SCH ×2 (18:25→23:18)
[2017-10-19] MEDS ORDERED: PT OWN MED DRAWER 7, Y5N ONE (21:24)
[2017-10-19] MEDS: traZODone HCL 50 MG TABLET (FP) PO SCH (22:51)
[2017-10-19] MEDS: MIRTAZAPINE 15 MG TABLET (FP) PO SCH (22:51)
[2017-10-19] MEDS: ROSUVASTATIN CA 5 MG TABLET (FP) PO SCH (22:52)
[2017-10-20] MEDS: NYSTATIN 100,000 UNIT/GM TOPICAL CREAM 15 GM TUBE TP SCH ×3 (06:03→17:56)
[2017-10-20] MEDS: oxyCODONE HCL 5 MG TABLET PO PRN ×3 (06:26→18:46)
[2017-10-20] MEDS: ACETAMINOPHEN 325 MG TABLET (FP) PO PRN ×3 (06:26→18:47)
[2017-10-20] MEDS ORDERED: PT OWN MED DRAWER 7, Y5N ONE ×2 (07:02→09:49)
--- NOTE | 2017-10-20 08:08 | PN ---
Physical Exam: SUBJECTIVE: Patient seen and examined. Pt tolerating pain with meds. Reluctant to use opiates for fear of addiction. OBJECTIVE: Vital Signs Period Temp Pulse Resp BP Sys/Montgomery Pulse Ox Last 24 Hr 98 F-99.8 F 71-98 18-20 108-159/67-79 96-96 Vital Signs Temp 99.8 F H 10/20/17 05:40 Pulse 98 H 10/20/17 05:40 Resp 20 10/20/17 05:40 BP 122/73 10/20/17 05:40 Pulse Ox 96 10/19/17 21:00 Intake & Output 10/19/17 10/19/17 10/20/17 11:59 23:59 11:59 Intake Total 625 1265 200 Output Total 315 250 4435 Balance 325 765 -1150 Intake: IV 625 375 D5-1/2Ns - 1,000 ml @ 125 625 375 mls/hr IV ASDIR [facility] Rx#: [id number] Oral 890 200 Output: Urine 692 241 6636 Void 133 972 0817 Other: Voiding Method Urinal Urinal Urinal Bowel Movement Yes: Small # Bowel Movements 1 GENERAL: The patient is awake, alert, and fully oriented, in no acute respiratory distress. HEAD: nasal bridge with clotted blood, L forehead scar EYES: PERRL, extraocular movements intact ENT: nasal bridge with clotted blood. LUNGS: Breath sounds equal, clear to auscultation bilaterally HEART: Regular rate and rhythm, S1, S2 without murmur. ABDOMEN: Soft, nontender, nondistended, normoactive bowel sounds EXTREMITIES: 2+ pulses, warm, well-perfused, no edema. Able to move both wrists and fingers. Can bend elbows slightly. Non tender shoulders bilaterally ( received pain meds). Still in bilateral shoulder/arm slings. NEUROLOGICAL: AAOx3, Normal speech, gait not observed. Laboratory Results - last 24 hr 10/19/17 10/19/17 10/19/17 08:05 08:05 08:05 WBC 9.1 RBC 3.60 L Hgb 12.4 D Hct 35.0 L D MCV 97.3 H MCH 34.5 H MCHC 35.4 RDW 13.1 Plt Count 165 MPV 7.7 Neutrophils % 60.0 Lymphocytes % 32.7 Monocytes % 6.9 Eosinophils % 0.2 Basophils % 0.2 Nucleated RBC % 0 Sodium 139 Potassium 3.8 Chloride 108 H Carbon Dioxide 24 Anion Gap 7 L BUN 13 Creatinine 1.2 Creat Clearance w eGFR 59.35 Random Glucose 123 H Calcium 7.8 L Total Bilirubin 2.0 H Direct Bilirubin 0.4 H AST 15 D ALT 14 D Alkaline Phosphatase 85 Total Protein 5.7 L Albumin 3.0 L 10/19/17 13:00 WBC 9.5 RBC 3.66 L Hgb 12.3 Hct 35.3 L MCV 96.4 H MCH 33.6 MCHC 34.8 RDW 12.8 Plt Count 167 MPV 7.7 Neutrophils % Lymphocytes % Monocytes % Eosinophils % Basophils % Nucleated RBC % Sodium Potassium Chloride Carbon Dioxide Anion Gap BUN Creatinine Creat Clearance w eGFR Random Glucose Calcium Total Bilirubin Direct Bilirubin AST ALT Alkaline Phosphatase Total Protein Albumin Active Medications Generic Name Dose Route Start Last Admin Trade Name Freq PRN Reason Stop Dose Admin Acetaminophen 325 mg 10/19/17 14:24 10/20/17 06:26 Tylenol - PO 325 mg Q4H PRN Administration PAIN LEVEL 4-6 Albuterol Sulfate 1 puff 10/19/17 00:28 Ventolin Hfa Inhaler - IH Q4H PRN SHORT OF BREATH/WHEEZING Bacitracin 1 applic 10/19/17 14:45 10/19/17 14:55 Bacitracin - TP 1 applic DAILY [facility] Administration Clonazepam 0.5 mg 10/19/17 00:28 10/19/17 22:51 Klonopin - PO 0.5 mg BID PRN Administration ANXIETY Docusate Sodium 100 mg 10/19/17 00:04 Colace - PO BID PRN CONSTIPATION Furosemide 20 mg 10/19/17 10:00 10/19/17 11:59 Lasix - PO 20 mg DAILY [facility] Administration Mirtazapine 15 mg 10/19/17 22:00 10/19/17 22:51 Remeron - PO 15 mg HS [facility] Administration Morphine Sulfate 1 mg 10/19/17 01:11 10/19/17 02:58 Morphine Sulfate IVPUSH 1 mg Q6H PRN Administration PAIN LEVEL 7-10 Nystatin 1 applic 10/19/17 18:00 10/20/17 06:03 Mycostatin Cream - TP 1 applic Q6HPO [facility] Administration Oxycodone HCl 5 mg 10/19/17 17:19 10/20/17 06:26 Roxicodone - PO 5 mg Q3H PRN Administration PAIN LEVEL4-6 Rosuvastatin Calcium 5 mg 10/19/17 22:00 10/19/17 22:52 Crestor - PO 5 mg HS [facility] Administration Trazodone HCl 50 mg 10/19/17 22:00 10/19/17 22:51 Desyrel - PO 50 mg HS [facility] Administration Ambulatory Orders Albuterol Sulfate Inhaler - [Ventolin Hfa Inhaler -] 1 - 2 inh PO Q4H PRN Budesonide/Formeterol Fumarate [SYMBICORT 80/4.5mcg -] 0 inh PO ASDIR 10/18/17 Cetirizine HCl [Zyrtec -] 10 mg PO DAILY 10/18/17 Furosemide [Lasix] 20 mg PO DAILY 10/18/17 Icosapent Ethyl [Vascepa] 0 gm PO ASDIR 10/18/17 Mirtazapine [Remeron -] 15 mg PO HS 10/18/17 Neomycn/Polymxn/Dexmth Op Susp [Maxitrol] 0 ml OU UTDICT 10/18/17 Rosuvastatin Calcium [Crestor] 5 mg PO DAILY 10/18/17 Trazodone HCl 100 mg PO HS 10/18/17 clonazePAM [Klonopin -] 0.5 mg PO BID PRN MDD 1 10/18/17 Metoprolol Succinate 25 mg PO DAILY 10/19/17 Tobramycin/Dexamethasone [Tobradex Eye Drops] 5 ml OP DAILY 10/19/17 Current Medications Acetaminophen (Tylenol -) 325 mg PO Q4H PRN PRN Reason: PAIN LEVEL 4-6 Last Admin: 10/20/17 06:26 Dose: 325 mg Albuterol Sulfate (Ventolin Hfa Inhaler -) 1 puff IH Q4H PRN PRN Reason: SHORT OF BREATH/WHEEZING Bacitracin (Bacitracin -) 1 applic TP DAILY [facility] Last Admin: 10/19/17 14:55 Dose: 1 applic Clonazepam (Klonopin -) 0.5 mg PO BID PRN PRN Reason: ANXIETY Last Admin: 10/19/17 22:51 Dose: 0.5 mg Docusate Sodium (Colace -) 100 mg PO BID PRN PRN Reason: CONSTIPATION Furosemide (Lasix -) 20 mg PO DAILY [facility] Last Admin: 10/19/17 11:59 Dose: 20 mg Mirtazapine (Remeron -) 15 mg PO [facility] Last Admin: 10/19/17 22:51 Dose: 15 mg Morphine Sulfate (Morphine Sulfate) 1 mg IVPUSH Q6H PRN PRN Reason: PAIN LEVEL 7-10 Last Admin: 10/19/17 02:58 Dose: 1 mg Nystatin (Mycostatin Cream -) 1 applic TP Q6HPO [facility] Last Admin: 10/20/17 06:03 Dose: 1 applic Oxycodone HCl (Roxicodone -) 5 mg PO Q3H PRN PRN Reason: PAIN LEVEL4-6 Last Admin: 10/20/17 06:26 Dose: 5 mg Rosuvastatin Calcium (Crestor -) 5 mg PO [facility] Last Admin: 10/19/17 22:52 Dose: 5 mg Trazodone HCl (Desyrel -) 50 mg PO [facility] Last Admin: 10/19/17 22:51 Dose: 50 mg ASSESSMENT/PLAN: 72yo man with PMD of COPD, HTN, HLD, and anxiety who presents s/p witnessed mechanical fall and found to have moderately displaced, comminuted fractures of R and L humeral head/neck #bilateral shoulder fractures -Ortho consulted: both fractures likely non-operative (would be reevaluated for sx as needed e.g. poor healing); bilateral UE sling: can use elbows/wrists for daily activities -D/W- ENT- nasal bone fracture stable, can follow out as an outpatient -Morphine 1mg Q3H PRN for pain control (pt afraid of addiction on opiates) -Percocet 5mg Q3H [facility] -Colace PRN for constipation -PT evaluation- Pt will need a SNF, D/W Social work- Pt will need preauthorization -Repeat CBC #mild leukocytosis, likely reactive -Trend #hyperbilirubinemia, unclear etiology -Trend and check Direct bili in AM #HTN -c/w home Metoprolol Succinate 25mg PO daily #COPD, not in exacerbation -Ventolin PRN #HLD - c/w home Crestor 5mg qd #anxiety -For home meds( Pharmacy- [facility], [id number]- [phone], Dr Sarah/ Dr Carter Murphy [phone], Dr Veronique [phone]) -c/w home meds #FEN PO intake lytes wnl Cardiac diet #PPX DVT -Hold heparin with recent trauma #DISPO: will likely need [facility], patient from [facility] in [place], 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 - New Patient This patient is new to me today: No - Critical Care Critical Care patient: No - Discharge Referral Referred to [facility] Med P.C.: No
[2017-10-20 08:23] LABS: BASO % 0.4 % (0-2.0); EOS % 0.7 % (0-4.5); HEMATOCRIT 34.2 % (35.4-49); HEMOGLOBIN 11.9 GM/dL (11.7-16.9); LYMPH % 29.5 % (8-40); MCHC 34.8 g/dl (32.0-35.9); MEAN CELL VOLUME 97.8 fl (80-96); MEAN PLT VOLUME 7.6 fl (7.5-11.1); MONO % 7.4 % (3.8-10.2); PLATELET COUNT 149 K/MM3 (134-434); RBC 3.49 M/mm3 (4.00-5.60); RDW 12.9 % (11.9-15.9); WHITE BLOOD COUNT 9.1 K/mm3 (4.0-10.0)
[2017-10-20 08:54] LABS: CHLORIDE 108 mmol/L (98-107); POTASSIUM 3.8 mmol/L (3.5-5.1); SODIUM 140 mmol/L (136-145)
[2017-10-20 09:21] LABS: ALBUMIN 2.9 g/dl (3.4-5.0); ALK PHOS 79 U/L (45-117); ANION GAP 8 (8-16); BILIRUBIN,TOTAL 1.5 mg/dL (0.2-1.0); BLOOD UREA NITROGEN 13 mg/dL (7-18); CALCIUM 7.9 mg/dL (8.5-10.1); CO2 24 mmol/L (21-32); CREATININE 1.3 mg/dL (0.7-1.3); GLUCOSE,RANDOM 126 mg/dL (74-106); MAGNESIUM 2.3 mg/dL (1.8-2.4); PHOSPHOROUS 2.5 mg/dL (2.5-4.9); SGOT/AST 15 U/L (15-37); SGPT/ALT 12 U/L (12-78); TOT PROT 5.7 g/dl (6.4-8.2)
[2017-10-20] MEDS: FUROSEMIDE 20 MG TABLET (FP) PO SCH (10:00)
[2017-10-20] MEDS: BACITRACIN 15 GM TUBE TOPICAL OINTMENT TP SCH (10:01)
[2017-10-20] MEDS: clonazePAM 0.5 MG TABLET PO PRN ×2 (11:32→22:07)
[2017-10-20] MEDS ORDERED: morphine SULFATE 4 MG/ML VIAL IVPUSH PRN (13:00)
--- NOTE | 2017-10-20 13:17 | PN ---
Teaching Attending Note Name of Resident: Kiana Biggs ATTENDING PHYSICIAN STATEMENT I saw and evaluated the patient. I reviewed the resident's note and discussed the case with the resident. I agree with the resident's findings and plan as documented. SUBJECTIVE:continues to have pain in his shoulders that limit his ability to perform ADL. difficulty sitting up and maneuvering in bed. denies CP, SOB, fever , chills, N/V/C/D OBJECTIVE: Last Vital Signs Temp Pulse Resp BP Pulse Ox 98.7 F 97 H 20 126/53 96 10/20/17 10:00 10/20/17 11:27 10/20/17 11:27 10/20/17 11:27 10/19/17 21:00 General NAD HEENT bruising superior to L orbit. bruising on bridge of nose. dried blood noted in the nares Extremities able to pronate/supinate B/L UE at the elbow. full motion at the wrist. pulses 2+ sensation grossly intact ASSESSMENT AND PLAN: 72yo M wtih PMH HTN. dyslipidemia, COPD and CAD s/p stnet presented to the hospital after falling on outstretched hands then striking his face. Found to have B/L proximal humerus fractures and nasal bone fracture 1. B/L proximal humerus fractures- due to mechanical fall. repeat imaging showing concern for hemarthrosis. as per ortho no further intervention at this time. may require arthroscopy in several weeks if ROM becomes limited. Hgb has been stable. pain controlled. pt expressed concern for developing opiate addiction due to past addictions. informed him that he should take as needed for severe pain and prior to PT assessment. currently NWB with arms in slings. pain control. 2. Nasal bone fracture-as per ENT nothing to do for fx. if having difficulty breathing can f/u as outpatient 3. normocytic anemia- likely dilutional effect. Hgb stable. no indication for txn 4. HTN- controlled. cont current management. 5. Dyslipidemia 6. COPD 7. CAD s/p stents 8. DVT ppx- will d/c heparin at this time in setting of hemarthrosis 9. will need [facility] placement due to inability to perform own ADL's and transfer. SW aware. [facility] sent today
[2017-10-20 15:13] LABS: HEMATOCRIT 34.6 % (35.4-49); HEMOGLOBIN 12.1 GM/dL (11.7-16.9); MCH 33.9 pg (25.7-33.7); MEAN CELL VOLUME 96.9 fl (80-96); MEAN PLT VOLUME 7.8 fl (7.5-11.1); PLATELET COUNT 147 K/MM3 (134-434); RBC 3.57 M/mm3 (4.00-5.60); RDW 12.7 % (11.9-15.9); WHITE BLOOD COUNT 10.1 K/mm3 (4.0-10.0)
[2017-10-20] MEDS: metoPROLOL SUCCINATE 25 MG TAB.SR.24H (FP) PO SCH (16:21)
[2017-10-20] MEDS: amLODIPine BESYLATE 10 MG TABLET (FP) PO SCH (16:42)
[2017-10-20] MEDS: traZODone HCL 50 MG TABLET (FP) PO SCH (22:07)
[2017-10-20] MEDS: MIRTAZAPINE 15 MG TABLET (FP) PO SCH (22:07)
[2017-10-20] MEDS: ROSUVASTATIN CA 5 MG TABLET (FP) PO SCH (22:09)
[2017-10-20] MEDS: BUDESONIDE/FORMETEROL FUMARATE 80/4.5 mcg INHALER IH SCH (22:10)
[2017-10-21] MEDS: NYSTATIN 100,000 UNIT/GM TOPICAL CREAM 15 GM TUBE TP SCH ×3 (02:00→13:03)
[2017-10-21] MEDS: ACETAMINOPHEN 325 MG TABLET (FP) PO PRN ×2 (07:11→15:41)
[2017-10-21] MEDS: oxyCODONE HCL 5 MG TABLET PO PRN ×2 (07:12→15:40)
[2017-10-21 08:27] LABS: BASO % 0.4 % (0-2.0); EOS % 1.4 % (0-4.5); HEMATOCRIT 35.4 % (35.4-49); HEMOGLOBIN 12.2 GM/dL (11.7-16.9); LYMPH % 31.4 % (8-40); MCH 33.7 pg (25.7-33.7); MCHC 34.5 g/dl (32.0-35.9); MEAN CELL VOLUME 97.8 fl (80-96); MEAN PLT VOLUME 8.3 fl (7.5-11.1); MONO % 7.3 % (3.8-10.2); NEUT % 59.5 % (42.8-82.8); PLATELET COUNT 160 K/MM3 (134-434); RBC 3.62 M/mm3 (4.00-5.60); RDW 12.4 % (11.9-15.9); WHITE BLOOD COUNT 9.1 K/mm3 (4.0-10.0)
[2017-10-21 09:09] LABS: ALBUMIN 2.8 g/dl (3.4-5.0); ALK PHOS 79 U/L (45-117); ANION GAP 7 (8-16); BILIRUBIN,TOTAL 1.2 mg/dL (0.2-1.0); CALCIUM 7.9 mg/dL (8.5-10.1); CHLORIDE 107 mmol/L (98-107); CO2 26 mmol/L (21-32); CREATININE 1.2 mg/dL (0.7-1.3); GLUCOSE,RANDOM 110 mg/dL (74-106); MAGNESIUM 2.3 mg/dL (1.8-2.4); PHOSPHOROUS 2.4 mg/dL (2.5-4.9); POTASSIUM 3.8 mmol/L (3.5-5.1); SGOT/AST 12 U/L (15-37); SGPT/ALT 14 U/L (12-78); SODIUM 140 mmol/L (136-145); TOT PROT 5.8 g/dl (6.4-8.2)
[2017-10-21 09:11] LABS: BLOOD UREA NITROGEN 13 mg/dL (7-18)
[2017-10-21] MEDS ORDERED: TOBRA 0.3%/DEXAMETH 0.1% OPHTHALMIC SUSP 2.5 ML BTL OP SCH (10:00)
[2017-10-21] MEDS: metoPROLOL SUCCINATE 25 MG TAB.SR.24H (FP) PO SCH (10:01)
[2017-10-21] MEDS: clonazePAM 0.5 MG TABLET PO PRN (10:01)
[2017-10-21] MEDS: amLODIPine BESYLATE 10 MG TABLET (FP) PO SCH (10:01)
[2017-10-21] MEDS: LORATADINE 10 MG TABLET PO SCH ×2 (10:01→10:15)
[2017-10-21] MEDS: FUROSEMIDE 20 MG TABLET (FP) PO SCH (10:01)
[2017-10-21] MEDS: BUDESONIDE/FORMETEROL FUMARATE 80/4.5 mcg INHALER IH SCH (10:02)
[2017-10-21] MEDS ORDERED: PT OWN MED DRAWER 7, Y5N ONE ×2 (10:44→12:12)
[2017-10-21] MEDS ORDERED: NEO/POLYMYX B SULF/DEXAMETH OPHTHALMIC 5ML BOTTLE OU SCH ×2 (10:45→11:00)
--- NOTE | 2017-10-21 12:05 | PN ---
Teaching Attending Note Name of Resident: Kiana Biggs ATTENDING PHYSICIAN STATEMENT I saw and evaluated the patient. I reviewed the resident's note and discussed the case with the resident. I agree with the resident's findings and plan as documented. SUBJECTIVE:states pain is controlled with pain medication. denies CP, SOB, fever , chills, N/V/C/D OBJECTIVE: Last Vital Signs Temp Pulse Resp BP Pulse Ox 97.3 F L 78 20 138/63 96 10/21/17 09:49 10/21/17 09:49 10/21/17 09:49 10/21/17 09:49 10/20/17 21:00 General NAD HEENT bruising superior to L orbit. bruising on bridge of nose. dried blood noted in the nares Extremities B/L UE pulses 2+ sensation grossly intact ASSESSMENT AND PLAN: 72yo M wtih PMH HTN. dyslipidemia, COPD and CAD s/p stnet presented to the hospital after falling on outstretched hands then striking his face. Found to have B/L proximal humerus fractures and nasal bone fracture 1. B/L proximal humerus fractures- due to mechanical fall. stable. will need to f/u with ortho as outpatient for possible arthroscopy. cont with pain control. would benefit from [facility]. currently NWB with arms in slings. pain control. 2. Nasal bone fracture-as per ENT nothing to do for fx. if having difficulty breathing can f/u as outpatient 3. normocytic anemia- likely dilutional effect. Hgb stable. no indication for txn 4. HTN- controlled. cont current management. 5. Dyslipidemia 6. COPD 7. CAD s/p stents 8. DVT ppx- will d/c heparin at this time in setting of hemarthrosis 9. accepted to [facility] in [place]. awaiting insurance authorization
[2017-10-21] MEDS: BACITRACIN 15 GM TUBE TOPICAL OINTMENT TP SCH (13:03)
--- NOTE | 2017-10-21 13:29 | DS ---
Physical Exam: SUBJECTIVE: Patient seen and examined. Using the opioids minimally but pt is aware they are available for him. No SOB, no chest pain. Pain managed with medication, able to move wrists and fingers. OBJECTIVE: Vital Signs Period Temp Pulse Resp BP Sys/[place] Pulse Ox Last 24 Hr 97.3 F-99.4 F 78-99 17-20 121-150/63-82 96 Vital Signs Temp 97.3 F L 10/21/17 09:49 Pulse 78 10/21/17 09:49 Resp 20 10/21/17 09:49 BP 138/63 10/21/17 09:49 Pulse Ox 96 10/20/17 21:00 Intake & Output 10/20/17 10/21/17 10/21/17 23:59 11:59 23:59 Intake Total 1030 200 Output Total 1425 650 Balance -395 -450 Intake: Oral 1030 200 Output: Urine 1425 650 Void 1425 650 Other: Voiding Method Urinal Urinal PHYSICAL EXAM GENERAL: The patient is awake, alert, and fully oriented, in no acute respiratory or obvious painful distress. HEAD: Healing nasal bruise EYES: PERRL, extraocular movements intact ENT: moist mucous membranes. NECK: full range of motion, supple. LUNGS: Breath sounds equal, clear to auscultation bilaterally, no wheezes, no crackles. HEART: Regular rate and rhythm, S1, S2 ABDOMEN:Obese, soft, nontender, normoactive bowel sounds, no guarding EXTREMITIES: 2+ pulses, warm, well-perfused, no edema. Non tender bilateral shoulders in bilateral sling. Able to move wrists and all fingers and flex elbows bilaterally. No UE edema, radial pulses present bilaterally NEUROLOGICAL: Cranial nerves II through XII grossly intact. Normal speech, gait not observed. LABS Laboratory Results - last 24 hr 10/20/17 10/21/17 10/21/17 14:30 07:40 08:00 WBC 10.1 H 9.1 RBC 3.57 L 3.62 L Hgb 12.1 12.2 Hct 34.6 L 35.4 MCV 96.9 H 97.8 H MCH 33.9 H 33.7 MCHC 35.0 34.5 RDW 12.7 12.4 Plt Count 147 160 MPV 7.8 8.3 Neutrophils % 59.5 Lymphocytes % 31.4 Monocytes % 7.3 Eosinophils % 1.4 D Basophils % 0.4 Nucleated RBC % 0 Sodium 140 Potassium 3.8 Chloride 107 Carbon Dioxide 26 Anion Gap 7 L BUN 13 Creatinine 1.2 Creat Clearance w eGFR 59.35 Random Glucose 110 H Calcium 7.9 L Phosphorus 2.4 L Magnesium 2.3 Total Bilirubin 1.2 H AST 12 L ALT 14 Alkaline Phosphatase 79 Total Protein 5.8 L Albumin 2.8 L HOSPITAL COURSE: Date of Admission:10/18/17 Date of Discharge: 10/21/17 Prehospital course 72yo man with PMD of COPD, HTN, HLD, and anxiety who presents s/p witnessed mechanical fall and found to have moderately displaced, comminuted fractures of R and L humeral head/neck Hospital course: Pt was diagnosed bilateral shoulder fractures and nasal bone fracture. Based on orthopedic recommendations, both fractures are likely non-operative (would be reevaluated for sx as needed e.g. poor healing. Pt is on bilateral UE sling and can use elbows/wrists for daily activities. For the nasal bone fracture, D/W ENT - stable nasal fracture, can follow out as an outpatient. Pain may be managed with oxycodone 5mg Q3H PRN. He should also use Colace PRN for constipation. He is being discharged to a subacute Nursing Facility for physical therapy. He may continue on his home medications for HTN, HLD, COPD and anxiety. He should follow up with his primary care physician, orthopedic surgeon and ENT. Minutes to complete discharge: 40 Discharge Summary Reason For Visit: FRACTURE OF HUMERUS Current Active Problems Humerus fracture (Acute) Condition: Stable - Instructions Diet, Activity, Other Instructions: You came in after falling and fracturing both humerus bones as well as your nose. You have been seen by orthopedic surgery and you will not need surgery at this time In the future, you may benefit from surgery, if you develop poor function, an abnormal connection between the blood vessels, or arthritis after bony healing You also fractured your nasal bone and will not need surgery at this time Please follow up with the orthopedic surgeon in 2 weeks You will be discharged to a [facility] facility based on the recommendations of physical therapy You are being discharged on opioid pain medications. Ensure that you are having daily bowel movement as they can cause constipation. Do not drive or operative heavy machinery while taking the opiates Follow up with your primary care doctor in one week Contact information for an orthopedic surgeon and ENT specialist has been provided. You may want to ask your Primary doctor for referrals in [place] if your unable to travel here for care. Continue your other home medications as prescribed If you think your symptoms are getting worse, please return to the nearest emergency room Referrals: Tushar Hendricks MD [Staff Physician] - 2 Weeks (orthopedic surgeon) Mohan Flores MD [Staff Physician] - 2 Weeks (ENT) Disposition: CUSTODIAL FACILITY - Home Medications Comprehensive Discharge Medication List: Ambulatory Orders Albuterol Sulfate Inhaler - [Ventolin Hfa Inhaler -] 1 - 2 inh PO Q4H PRN Budesonide/Formeterol Fumarate [SYMBICORT 80/4.5mcg -] 0 inh PO ASDIR 10/18/17 Cetirizine HCl [Zyrtec -] 10 mg PO DAILY 10/18/17 Furosemide [Lasix] 20 mg PO DAILY 10/18/17 Icosapent Ethyl [Vascepa] 0 gm PO ASDIR 10/18/17 Mirtazapine [Remeron -] 15 mg PO HS 10/18/17 Neomycn/Polymxn/Dexmth Op Susp [Maxitrol] 0 ml OU UTDICT 10/18/17 Rosuvastatin Calcium [Crestor] 5 mg PO DAILY 10/18/17 Trazodone HCl 100 mg PO HS 10/18/17 clonazePAM [Klonopin -] 0.5 mg PO BID PRN MDD 1 10/18/17 Metoprolol Succinate 25 mg PO DAILY 10/19/17 Tobramycin/Dexamethasone [Tobradex Eye Drops] 5 ml OP DAILY 10/19/17 Norvasc - 10 mg PO DAILY 10/20/17 This patient is new to me today: No Emergency Visit: Yes ED Registration Date: 10/18/17 Care time: The patient presented to the Emergency Department on the above date and was hospitalized for further evaluation of their emergent condition. Critical Care patient: No - Discharge Referral Referred to [facility] Med P.C.: No
--- NOTE | 2017-10-21 13:47 | PN ---
Progress Note (short form) - Note Progress Note: Pt sitting up comf in bed. Pain well controlled. Last Vital Signs Temp Pulse Resp BP Pulse Ox 97.3 F L 78 20 138/63 96 10/21/17 09:49 10/21/17 09:49 10/21/17 09:49 10/21/17 09:49 10/20/17 21:00 B/l UE in slings elbows and wrists nontender NVID A/p: b/l prox hum fxs -reviewed today's findings w/pt -advised L fx will heal well nonop -R side is quite comminuted and is less predictable -can consider acute intervention with rTSA -reviewed procedure with pt including r/b/a -pt not interested in surgery right now -can consider later rTSA if not having clinically acceptable outcome -reviewed no option will make shoulder normal again -will f/u with new films 2 weeks
[2017-10-21 15:33] VITALS: BP 134/74; PULSE 96; TEMP 98.9
== END 2017-10-21 17:47 | DRG 563 ==
LOC: JER 15:01 → JERBED 23:24 → J5S 10-19 10:15
PROVIDERS: ADMIT Internal Medicine; ATTEND Internal Medicine
PROC: 2W3AXYZ Immobilization of Right Upper Arm using Other Device (ICD-10-PCS; principal; 2017-10-18)
PROC: 2W3BXYZ Immobilization of Left Upper Arm using Other Device (ICD-10-PCS; 2017-10-18)
DX: S42.294A Other nondisplaced fracture of upper end of right humerus, initial encounter for closed fracture (principal); S42.295A Other nondisplaced fracture of upper end of left humerus, initial encounter for closed fracture; S02.2XXA Fracture of nasal bones, initial encounter for closed fracture; W01.0XXA Fall on same level from slipping, tripping and stumbling without subsequent striking against object, initial encounter; Y93.89 Activity, other specified; Y92.89 Other specified places as the place of occurrence of the external cause; Y99.8 Other external cause status; I10 Essential (primary) hypertension; E78.5 Hyperlipidemia, unspecified; J44.9 Chronic obstructive pulmonary disease, unspecified; F41.9 Anxiety disorder, unspecified; Z87.891 Personal history of nicotine dependence; I25.10 Atherosclerotic heart disease of native coronary artery without angina pectoris; Z95.5 Presence of coronary angioplasty implant and graft; S00.81XA Abrasion of other part of head, initial encounter; D72.829 Elevated white blood cell count, unspecified; D64.9 Anemia, unspecified
CPT/HCPCS: 36415; 70450-TC; 70486-TC; 71045-TC-FY; 72125-TC; 73030-TC-LT-FY; 73030-TC-RT-FY; 73200-TC-RT; 80053; 82248; 83735; 84100; 85025; 85027; 85610; 86850; 86900; 86901; 93005; 93010; 97116-GP; 97162-GP; 99284-25